=== PATIENT | female | born 1980 | race Caucasian/White ===

== ENCOUNTER 2024-01-04 12:46 | Emergency (ER) | payer BC, SELFPAY ==
[2024-01-04 12:53] VITALS: BP 148/80; PULSE 102; RESP 16; TEMP 36.6; O2SAT 98
[2024-01-04 13:06] VITALS: BP 148/80; PULSE 102; RESP 16; TEMP 36.6; O2SAT 98
--- NOTE | 2024-01-04 13:15 | ED.WOUNDLAC ---
HPI - Wound/Laceration General Chief Complaint: Wound/Laceration Stated Complaint: Laceration to Finger Time Seen by Provider: 01/04/24 13:03 Source: patient and RN notes reviewed Mode of arrival: ambulatory Limitations: no limitations History of Present Illness HPI narrative: Patient presents today with a laceration to the tip for left 3rd finger. She cut in the cargo trimmer yesterday and was subsequently seen in the ER at [facility] where glue was placed. 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 They also did not give her a tetanus vaccine, and she is not up-to-date. She called her PCP's office and was told to come to urgent care to have it updated. Related Data Home Medications Medication Instructions Recorded Confirmed fenofibrate 54 mg tablet mg 01/04/24 lisinopril 20 mg tablet mg 01/04/24 venlafaxine 75 mg capsule,extended mg PO 01/04/24 release 24 hr Allergies Allergy/AdvReac Type Severity Reaction Status Date / Time Sulfa (Sulfonamide Allergy Unknown Nausea and Verified 01/04/24 13:06 Antibiotics) Vomiting Review of Systems Review of Systems: CONSTITUTIONAL: Denies body aches, fever, chills, or sweats. EYES: Denies visual changes, redness, or discharge. ENT: Denies rhinorrhea, congestion, sore throat, or otalgia. CARDIOVASCULAR: Denies chest pain, palpitations, or edema. RESPIRATORY: Denies cough or dyspnea. GASTROINTESTINAL: Denies abdominal pain, nausea, vomiting, or diarrhea. GENITOURINARY: Denies dysuria or hematuria. SKIN: Denies rash, itching. + oozing laceration MUSCULOSKELETAL: Denies back pain, joint pain, or myalgia. NEUROLOGIC: Denies headache, numbness, tingling, or weakness. PSYCH: Denies depression or anxiety. PMFSH Comments At time of signature, I have reviewed and agree with nursing past medical, surgical, social and family history unless otherwise noted. Please see nursing chart for further information. There is no relevant family history pertinent to the presenting complaint Exam Narrative: GENERAL: Well-appearing, well-nourished, and in no acute distress. HEAD: Normocephalic, atraumatic. EYES: EOMI. No redness or drainage. Conjunctivae normal. ENT: Mucous membranes pink and moist. NECK: Normal AROM. CHEST: No respiratory distress. EXTREMITIES: Left 3rd finger: Mild lacerations to the distal finger pad with intact glue. Tiny amount of glue on tissue. Distal sensation intact. Capillary refill normal. Full range of motion finger. Large Band-Aid applied. SKIN: Warm, dry, no rash. Capillary refill normal. Normal skin turgor. NEURO: No focal deficits. Alert and oriented x3. Gait steady. PSYCH: Normal affect. No signs of depression or anxiety. Course Course Level of Care: Express Care Visit Vital Signs Vital signs: Vital Signs Temperature 97.9 F 01/04/24 12:53 Pulse Rate 102 H 01/04/24 12:53 Respiratory Rate 16 01/04/24 12:53 Blood Pressure 148/80 H 01/04/24 12:53 Pulse Oximetry 98 01/04/24 12:53 Oxygen Delivery Room Air 01/04/24 12:53 Temperature 97.9 F 01/04/24 13:06 Pulse Rate 102 H 01/04/24 13:06 Respiratory Rate 16 01/04/24 13:06 Blood Pressure 148/80 H 01/04/24 13:06 Pulse Oximetry 98 01/04/24 13:06 Oxygen Delivery Room Air 01/04/24 13:06 Reviewed MDM - Wound/Laceration MDM Narrative Medical decision making narrative: Band-aid applied. Wound care discussed.. Tetanus shot updated. Anticipatory guidance given. Differential Diagnosis Differential diagnosis: Likely laceration and avulsion of skin Critical Care Time Critical Care Time Critical Care Time: No Discharge Plan Discharge Clinical Impression: Need for tetanus, diphtheria, and acellular pertussis (Tdap) vaccine Finger laceration Qualifiers: Encounter type: subsequent encounter Finger: midd
[2024-01-04] MEDS: TETANUS,DIPHTHERIA,AC PERTUSSIS ADULT (0.5 ML) BOOSTRIX IM (13:22)
== END 2024-01-04 13:32 | disposition home or self-care (01) ==
PROVIDERS: Emergency Provider Nurse Practitioner; PCP Nurse Practitioner Family
DX: S61.213A Laceration without foreign body of left middle finger without damage to nail, initial encounter (principal); W29.3XXA Contact with powered garden and outdoor hand tools and machinery, initial encounter; Z23 Encounter for immunization; I10 Essential (primary) hypertension
CPT/HCPCS: 90471; 90715; 99202; G0463

== ENCOUNTER 2025-02-14 11:22 | Emergency (ER) | payer BC, SELFPAY ==
--- OUTSIDE RECORDS SUMMARY | 2025-02-14 11:24 | XMS_ITS | Clinical Summary ---
Author Organization [facility] Address [address] [address] Phone Care Team Providers Care Behavior Support Specialist Name Role Phone Juliet Wang APRN, CNP Primary Care Provider [phone] Allergies Active Allergy Reactions Criticality Noted Date Comments Sulfa Antibiotics Other (see Comments) 01/03/20 24 Medications traMADol (ULTRAM) 50 MG TabletIndicatio ns:Cervical radiculopathy,D DD (degenerative disc disease), cervical Take 1 Tablet by mouth every 6 hours as needed for Moderate or more severe pain. 12 Tablet 07/16/2024 Active Encounters Date Type Department Care Team Description 11/24/2024 8:17 AM CDT - 11/24/2024 11:59 PM CDT Hospital Encounter [facility] Mamm[facility] [address] [place] [address] Juliet Wang APRN, CNP Discharge Disposition: Discharged to home or Selfcare 11/23/2024 Travel from Last 3 Months Social History Tobacco Use Types Packs/Day Years Used Date Smoking Tobacco: Never Assessed Comments No Sex and Gender Information Value Date Recorded Sex Assigned at Not on file Legal Sex Female 11:25 PM CDT Gender Identity Not on file Sexual Orientation Not on file Last Filed Vital Signs Vital Sign Reading Time Taken Comments Blood Pressure 146/82 07/16/2024 6:15 PM CDT Pulse 81 07/16/2024 6:15 PM CDT Temperature 36.3 C (97.4 F) 07/16/2024 4:15 PM CDT Respiratory Rate 19 07/16/2024 6:15 PM CDT Oxygen Saturation 96% 07/16/2024 6:15 PM CDT Inhaled Oxygen Concentration - - Weight 77.1 kg (170 lb) 07/16/2024 4:15 PM CDT Height 152.4 cm (5') 07/16/2024 4:15 PM CDT Body Mass Index 33.2 07/16/2024 4:15 PM CDT Plan of Treatment Health Maintenance Due Date Last Done Comments Hepatitis C Virus (HCV) Screening 1981 Hepatitis B Immunization (1 of 3 - 19+ 3-dose series) 2000 Pap Smear 2002 Human Papillomavirus (HPV) Immunization (1 - 3-dose SCDM series) 2008 Cervical Cancer Screening (CCS) 12/13/2011 HPV/Cotest 12/13/2011 Influenza Immunization (#1) 2024 SARS-COV-2 Immunization ( season) 2024 Mammogram 10/06/2025 10/06/2024 Respiratory Syncytial Virus (RSV) Immunization (Adult) (1 - 1-dose 75+ series) 2056 DTaP/Tdap/Td Immunization Discontinued 01/04/2024 TdaP Immunization Completed 01/04/2024 Discussion re Starting/Frequency of Mammograms Completed 11/24/2024, 10/06/2024 Meningococcal Immunization (ACWY) Aged Out No longer eligible based on patient's age to complete this topic Pneumococcal Immunization Combined Aged Out No longer eligible based on patient's age to complete this topic Rotavirus Immunization Aged Out No lo nger eligible based on patient's age to complete this topic Procedures Procedure Name Priority Date/Time Associated Diagnosis Comments PACO DIAG RIGHT UNILATERAL DIGITAL W CAD W LISY Routine 11/24/2024 8:45 AM CDT Other specified disorders of breast PACO SCREENING BILATERAL DIGITAL W CAD W LISY Routine 10/06/2024 3:57 PM CDT Visit for screening mammogram from Last 3 Months or Most Recently Relevant to Health Maintenance Results * PACO DIAG RIGHT UNILATERAL DIGITAL W CAD W LISY (11/24/2024 8:45 AM CDT) Anatomical Region Laterality Modality breast Right Mammography 11/24/2024 8:25 AM CDT Narrative 11/24/2024 3:59 PM CDT - PACO DIAG RIGHT UNILATERAL DIGITAL W CAD W LISY UNILATERAL RIGHT DIGITAL DIAGNOSTIC MAMMOGRAM 3D/2D WITH CAD WITH CRANIOCAUDAL ADDITIONAL VIEWS ROLLED LATERAL ROLLED MEDIAL SPOT COMPRESSION: 11/24/2024 The study was acquired using digital technology and interpreted from soft copy. Current study was also evaluated with ICAD version 7.2. 2D digital mammographic views, as well as 3D digital tomosynthesis were performed in the CC and MLO projections. CLINICAL: Patient returns to evaluate an asymmetry in the right breast. No personal history of cancer. No family history of breast cancer. COMPARISONS: Comparison is made to exam dated: 10/06/2024 [facility]. BREAST TISSUE:There are scattered areas of fibroglandular density. FINDINGS: No persistent asymmetry is seen in the right breast on the additional views. No significant masses, calcifications, or other findings are seen in the breast. IMPRESSION: NEGATIVE There is no mammographic evidence of malignancy. A 1 year screening mammogram is recommended. The results and recommendations were discussed with the patient. Electronically signed by: Orin Lindquist M.D. ll/:11/24/2024 08:56:32 Senior Android Developer(s): RT Rah(R)(M), [facility] letter sent: Normal Exam Reading location: [place] Mammogram BI-RADS: Category 1: Negative Procedure Note Orin Lindquist MD - 11/24/2024 - PACO DIAG RIGHT UNILATERAL DIGITAL W CAD W LISY UNILATERAL RIGHT DIGITAL DIAGNOSTIC MAMMOGRAM 3D/2D WITH CAD WITH CRANIOCAUDAL ADDITIONAL VIEWS ROLLED LATERAL ROLLED MEDIAL SPOT COMPRESSION: 11/24/2024 The study was acquired using digital technology and interpreted from soft copy. Current study was also evaluated with ICAD version 7.2. 2D digital mammographic views, as well as 3D digital tomosynthesis were performed in the CC and MLO projections. CLINICAL: Patient returns to evaluate an asymmetry in the right breast. No personal history of cancer. No family history of breast cancer. COMPARISONS: [facility] is [facility] BREAST TISSUE:There are scattered areas of fibroglandular density. FINDINGS: No persistent asymmetry is seen in the right breast on the additional views. No significant masses, calcifications, or other findings are seen in the breast. IMPRESSION: NEGATIVE There is no mammographic evidence of malignancy. A 1 year screening mammogram is recommended. The results and recommendations were discussed with the patient. Electronically signed by: Orin Lindquist M.D. ll/:11/24/2024 08:56:32 Senior Android Developer(s): RT Rah(R)(M), [facility] letter sent: Normal Exam Reading location: [place] Mammogram BI-RADS: Category 1: Negative us Juliet Wang APRN, USER EXPERIENCE TEAM LEAD IMG MAMMO ORDERABLES Donita l Result * PACO SCREENING BILATERAL DIGITAL W CAD W LISY (10/06/2024 3:57 PM CDT) Anatomical Region Laterality Modality breast Bilateral Mammography 10/06/2024 3:23 PM CDT Narrative 10/07/2024 10:48 AM CDT - PACO SCREENING BILATERAL DIGITAL W CAD W LISY BILATERAL DIGITAL SCREENING MAMMOGRAM 3D/2D WITH CAD WITH MEDIOLATERAL OBLIQUE CRANIOCAUDAL: 10/06/2024 The study was acquired using digital technology and interpreted from soft copy. Current study was also evaluated with ICAD version 7.2. 2D digital mammographic views, as well as 3D digital tomosynthesis were performed in the CC and MLO projections. CLINICAL: Baseline screening. Patient has no complaints. No personal history of cancer. No family history of breast cancer. COMPARISONS: No prior exams were available for comparison. BREAST TISSUE:There are scattered areas of fibroglandular density. FINDINGS: There is an asymmetry in the right breast anterior depth central to the nipple seen on the craniocaudal view only. No other significant masses, calcifications, or other findings are seen in either breast. IMPRESSION: INCOMPLETE: NEED ADDITIONAL IMAGING EVALUATION The asymmetry in the right breast is indeterminate. An immediate follow-up is recommended. A letter will be sent to the patient with these results. Electronically signed by: Orin conway/penrad:10/06/2024 22:25:45 Senior Android Developer(s): RT Roberto(R)(M), [facility] letter sent: Additional Imaging Reading location: [place] Mammogram BI-RADS: Category 0: Incomplete: Need Additional Imaging Evaluation Procedure Note Orin Lindquist MD - 10/07/2024 - PACO SCREENING BILATERAL DIGITAL W CAD W LISY BILATERAL DIGITAL SCREENING MAMMOGRAM 3D/2D WITH CAD WITH MEDIOLATERAL OBLIQUE CRANIOCAUDAL: 10/06/2024 The study was acquired using digital technology and interpreted from soft copy. Current study was also evaluated with ICAD version 7.2. 2D digital mammographic views, as well as 3D digital tomosynthesis were performed in the CC and MLO projections. CLINICAL: Baseline screening. Patient has no complaints. No personal history of cancer. No family history of breast cancer. COMPARISONS: No prior exams were available for comparison. BREAST TISSUE:There are scattered areas of fibroglandular density. FINDINGS: There is an asymmetry in the right breast anterior depth central to the nipple seen on the craniocaudal view only. No other significant masses, calcifications, or other findings are seen in either breast. IMPRESSION: INCOMPLETE: NEED ADDITIONAL IMAGING EVALUATION The asymmetry in the right breast is indeterminate. An immediate follow-up is recommended. A letter will be sent to the patient with these results. Electronically signed by: Orin conway/penrad:10/06/2024 22:25:45 Senior Android Developer(s): RT Roberto(R)(M), [facility] sent: Additional Imaging Reading location: [place] Mammogram BI-RADS: Category 0: Incomplete: Need Additional Imaging Evaluation us Juliet Wang SOUND EQUIPMENT MECHANIC, USER EXPERIENCE TEAM LEAD IMG MAMMO ORDERABLES Donita l Result from Last 3 Months or Most Recently Relevant to Health Maintenance Insurance MEDICAID [place] Care Teams Behavior Support Specialist Relationship Specialty Start Date End Date Felipe, GER Chung, CYRIL PCP - General Family Medicine 01/03/24
[2025-02-14 11:25] VITALS: BP 150/74; PULSE 95; RESP 16; TEMP 36.3; O2SAT 99
--- NOTE | 2025-02-14 11:25 | ED_ITS ---
HPI - URI/Sore Throat General Chief Complaint: Upper Respiratory Infection Stated Complaint: Cough/Runny Nose/Chest Congestioin Time Seen by Provider: 02/14/25 11:24 Source: patient Mode of arrival: ambulatory Limitations: no limitations History of Present Illness HPI Narrative: Marixa is a 44 year old female patient presenting to the clinic today with c/o cough, runny nose, wheezing,and chest congestion x1 week. She reports she is coughing up some brown phlegm. She is a current smoker. She denies any fevers, chills, body aches. Has not taken any medications for her symptoms. States she gets bronchitis every year. No history of asthma or COPD. Denies any chest pain or shortness of breath. Related Data Home Medications ?Medication ?Instructions ?Recorded ?Confirmed ?Last Taken ?Type fenofibrate 54 mg tablet mg 01/04/24 Unknown History lisinopril 20 mg tablet mg 01/04/24 Unknown History venlafaxine 75 mg capsule,extended mg PO 01/04/24 Unk nown History release 24 hr fenofibrate 160 mg tablet mg 02/14/25 Unknown History Allergies Allergy/AdvReac Type Severity Reaction Status Date / Time Sulfa (Sulfonamide Allergy Unknown Nausea and Verified 02/14/25 11:35 Antibiotics) Vomiting Review of Systems Review of Systems: Pertinent positives per HPI. Patient denies any fever, chills, rash, headache, visual changes, dizziness, shortness of breath, chest pain, palpitations, nausea, vomiting, diarrhea, constipation, abdominal pain, or any urinary issues. PMFSH Comments At the time of my signature, I reviewed and agree with the nursing past medical, surgical, social, and family history. There is no relevant family history pertinent to the patient complaint. Exam Narrative: General: Well-developed, well nourished, in no apparent distress Head: Normocephalic, atraumatic Eyes: Pupils equally round and reactive to light bilaterally, EOM intact, sclera and conjunctive clear, no discharge, lids normal Ears: TMs intact and clear, ear canals clear, no drainage, grossly hearing normal. Nose: Nares patent, clear nasal discharge, mild inflammation, no sinus tenderness. Mouth: Oral pharynx without lesions or masses, good dentition, MMM. PND Neck: Supple, trachea midline, no enlargement of anterior or posterior cervical nodes, no thyroid masses or goiter palpable. Cardio: Regular rate and rhythm, s1 and s2 normal, no murmur appreciated. Resp: Clear to auscultation bilaterally, no rhonchi, rales, wheezing or rubs Course Course Emergency Course: Portions of this record may have been created with voice recognition software. Level of Care: Express Care Visit Vital Signs Vital signs: Vital Signs Temperature 36.3 C L 02/14/25 11: Pulse Rate 95 02/14/25 11: Respiratory Rate 16 02/14/25 11:25 Blood Pressure 150/74 H 02/14/25 11:25 Pulse Oximetry 99 02/14/25 11:25 Oxygen Delivery Room Air 02/14/25 11: Temperature 36.3 C L 02/14/25 11: Pulse Rate 95 02/14/25 11: Respiratory Rate 16 02/14/25 11: Blood Pressure 150/74 H 02/14/25 11:25 Pulse Oximetry 99 02/14/25 11:25 Oxygen Delivery Room Air 02/14/25 11:25 Vital signs reviewed MDM - URI/Sore Throat MDM Narrative Medical decision making narrative: At the time of visit patient is resting comfortably on the exam table. Patient appears to be nontoxic. C/o cough, runny nose, wheezing,and chest congestion x1 week. She reports she is coughing up some brown phlegm. She is a current smoker. She denies any fevers, chills, body aches. Has not taken any medications for her symptoms. States she gets bronchitis every year. No history of asthma or COPD. On exam patient has bilateral TMs intact and clear, clear nasal drainage, oral pharynx postnasal drip, lung sounds are clear, heart rates regular rate and rhythm. No sign of bacterial infection. Plan: I suspect patient likely has viral bronchitis/ URI. Prescription for prednisone and albuterol inhaler was sent to the pharmacy. Supportive measures were discussed with the patient and they voiced understanding discharge instructions and agrees to treatment plan. Return precautions reviewed Differential Diagnosis Differential diagnosis: Likely upper respiratory infection, otitis media, si nusitis, viral infection, bronchitis, influenza, pharyngitis and other (COVID) Discharge Plan Discharge Clinical Impression: Acute bronchitis, viral Patient Disposition: Home Condition: Stable Instructions: Antibiotic Form, Acute Bronchitis (ED) Additional Instructions: Take prescription medications only as prescribed- prednisone and albuterol inhaler Increase fluids and stay well hydrated May take Tylenol or motrin as directed on bottle for pain/fever May use Flonase 1 spray in each nare daily May take OTC antihistamines such as Zyrtec or Claritin daily as directed on bottle May apply Vicks vapor rub to chest to open sinuses Sinus rinses for congestion Cepacol spray, cough drops, throat lozenges, warm tea with honey/lemon, gargle salt water to soothe throat BRAT diet for diarrhea Clear liquids x 24 hours then advance as tolerated for nausea/vomiting Go to the ED if you develop a worsening in your condition- high fever not controlled by Tylenol or Motrin, dehydration, weakness, lethargy, shortness of breath, or chest pain. Follow up with your PCP in 3-5 days if symptoms persist. Patient Language: Montenegrin Prescriptions: New prednisone 20 mg tablet 40 mg PO DAILY 5 Days Qty: 10 0RF albuterol sulfate 90 mcg/actuation HFA aerosol inhaler 2 puff inhalation Q4-6H PRN (Reason: shortness of breath or wheezing) 30 Days Qty: 8.5 0RF No Action fenofibrate 160 mg tablet venlafaxine 75 mg capsule,extended release 24hr PO lisinopril 20 mg tablet fenofibrate 54 mg tablet Follow-up/Referrals: Felipe,Juliet Law APN [Primary Care Provider, Unknown] Stand Alone Forms: Work/School Release IP Time of Disposition: 11:42 Quality NIHSS Nursing Documentation ED NIHSS nursing documentation: reviewed/agree
--- OUTSIDE RECORDS SUMMARY | 2025-02-14 11:25 | XMS_ITS | Data Portability ---
Author Organization [facility] Address [address] [place] [address] Care Team Providers Care Caterer'S Aide Name Role Phone PEREZ, JULIET Primary Care Provider Unavailabl e Assessment No assessment recorded. Plan of Treatment Reminders Order Date Submit Date Provider Last Modified By Organization Details Last Modified Time Details Appointments ANY 15 2024 10:15A Baylee Moran MD Not available Not available Not available Lab CMP, serum or plasma 2024 025 [facility], [address] [place] [address], [place], [address], 11/11/2024 03:36:14 lipid panel, serum 2024 025 [facility], [address] [place] [address], [place], [address], 11/11/2024 03:36:13 TSH, ultra-s ensitiv e, serum 2024 025 [facility], [address] [place] [address], [place], [address], 11/11/2024 03:36:14 HbA1c (hemogl obin A1c), blood 2024 025 [facility], [address] [facility] [address], [place], [address], 09/10/2024 04:09:09 vitamin D, 25-hydr oxy, total, serum 2024 025 [facility], [address] [facility], [facility] 2, [place], [address], 09/10/2024 04:09:11 lipid panel, serum 2024 025 [facility], [address] [facility], [facility] 2, [place], [address], 09/11/2024 08:25:16 CMP, serum or plasma 2024 025 [facility], [address] [facility], [facility] 2, [place], [address], 09/11/2024 08:25:17 Referral physica l therapi st referra l 2024 025 [facility], [address] [place] [address], [facility] [address], [place], [address], 08/12/2024 16:07:23 cardiol ogist referra l 2024 025 chris Moran MD, [address], [facility] [address], [place], [address], 07/25/2024 10:10:56 Procedures None recorde d. Surgeries None recorde d. Imaging exercis e [email or web address], [address] [facility] [place], [address], 12/01/2024 17:24:24 US, echocar diogram , transth oracic, complet e, w/ color flow 2024 025 [facility] ([facility]) Scheduling, [address] [facility] [place], [address], 08/20/2024 10:15:55 XR, chest, 2 view 2024 025 [facility] ([facility]) Scheduling, [address] [facility] [place], [address], 09/02/2024 12:17:48 Medication Orders fenofib rate 160 mg tablet 2024 025 [facility] #[id number], [address] [facility], [place], [place], [id number], 09/16/2024 10:25:31 loratad ine 10 mg tablet 2024 025 [facility] #[id number], [address] [facility], [place], [place], [id number], 08/12/2024 09:08:11 venlafa xine ER 75 mg capsule ,extend ed release 24 hr 2024 025 [facility] #[id number], [address] [facility], [place], [place], [id number], 08/12/2024 09:05:44 Lipitor 20 mg tablet 2024 025 [facility] #50961, [address] [facility], [place], [place], [id number], 09/16/2024 10:22:55 tramado l 50 mg tablet 2024 025 [facility] #12280, [address] [facility], [place], [place], [id number], 07/24/2024 15:37:54 ibuprof en 800 mg tablet 2024 025 [facility] #72661, [address] [facility], [place], [place], [id number], 05/13/2024 10:08:58 lisinop ril 20 mg tablet 2024 025 [facility] #60622, [address] [facility], [place], [place], [id number], 05/13/2024 10:04:10 venlafa xine ER 75 mg capsule ,extend ed release 24 hr 2024 025 [facility] #62655, [address], [place], [place], [id number], 05/13/2024 10:04:11 buspiro ne 5 mg tablet 2024 025 [facility] #02670, [address], [place], [place], [id number], 08/05/2024 10:01:49 Patient TargetsNo targets recorded. Patient Instructions Encounter Date Encounter Id Patient Instructions Last Modified By Organization Details Last Modified Time 05/13/2024 [id number] When You Want to Lose Weight: Care Instructions Not available 05/13/2024 10:04:04 Quitting Tobacco : Care Instructions Not available 05/13/2024 10:04:04 learning about high blood pressure Not available 05/13/2024 10:04:04 high cholesterol : care instructions Not available 05/13/2024 10:10:52 Follow a low sandra t diet, drink at least 8-10 8oz glasses of water a day, exercise most days of the week. Not available 05/13/2024 10:15:21 f/u 3 months DWP barriers to care: none Not available 05/13/2024 10:09:40 07/24/2024 [id number] neck pain: care instructions Not available 07/24/2024 15:35:56 When You Want to Lose Weight: Care Instructions Not available 07/24/2024 15:35:56 learning about high blood pressure Not available 07/24/2024 15:35:56 - Avoid heavy lifting and over-exertion. - Avoid bed-rest do some gentle stretching and continue with normal activities. - Use ice to relieve pain, 15 minutes every 2 4 hours. - Use heat to relax muscles, 15 minutes every 2 4 hours. - Sleep on a firm surface and avoid lying on the sofa. Not available 07/24/2024 15:39:17 keep f/u as planned Not available 07/24/2024 15:39:12 08/05/2024 [id number] Quitting Tobacco : Care Instructions Not available 08/05/2024 10:28:15 A healthy lifestyle: care instructions [email or web address] Not available 08/05/2024 10:28:15 08/12/2024 [id number] neck pain: care instructions Not available 08/12/2024 09:05:32 Quitting Tobacco : Care Instructions Not available 08/12/2024 09:05:32 high cholesterol : care instructions Not available 08/12/2024 09:05:32 upper respirator y infection (cold): care instructions Not available 08/12/2024 09:05:32 learning about high blood sugar Not available 08/12/2024 09:05:32 learning about high blood pressure Not available 08/12/2024 09:05:32 Increase intake of fresh fruits, and vegetables. Avoid packaged foods and fast foods. Follow a low salt diet, drink at least 8-10 8oz glasses of water a day, exercise most days of the week. Take all medications as prescribed. Keep appointments with PCP and all specialists. [email or web address] Not available 08/12/2024 08:50:07 Labs done with Cardiology labs, follow-up upon completion of physical therapy Not available 08/12/2024 08:50:00 09/16/2024 [id number] A healthy lifestyle: care instructions [email or web address] Not available 09/16/2024 10:25:25 Reason for Referral Ecd Referral for El ectrocardiogram abnormal Referring Physician: [facility], Encounter Date: 07/24/2024 Physical Therapist Referral for Neck pain Referring Physician: [facility], Encounter Date: 07/24/2024 Results Created Date Observation Date Name Description Value Unit Range Abnormal Flag Note LastModifiedBy Organization Detail LastModifiedTime 07/17/19 25 07/16/2024 CBC W Auto Diffe alverto al panel - Blood leukocytes [#/volume] in blood by automated count 9.21 text: 4.00 - 12.00 10(3)/ mcL WBC 9.21 4.00 - 12.00 10(3) /mcL 07/16 5:50 PM CD[facility] Not Available Not Available 07/24/2024 06:24:11 07/17/19 25 07/16/2024 CBC W Auto Diffe renti al panel - Blood erythrocytes [#/volume] in blood by automated count 4.07 text: 3.80 - 5.30 10(6)/ mcL RBC 4.07 3.80 - 5.30 10(6) /mcL 07/16 5:50 PM CDT [facility] Not Available Not Available 07/24/2024 06:24:11 07/17/19 25 07/16/2024 CBC W Auto Diffe renti al panel - Blood hemoglobin [mass/volume ] in blood 12.6 g/dL low: 12g/dL high: 15.8g/ dL HEMOG LOBIN (HGB) 12.6 12.0 - 15.8 g/dL 07/16 5:50 PM CDT [facility] Not Available Not Available 07/24/2024 06:24:11 07/17/19 25 07/16/2024 CBC W Auto Diffe renti al panel - Blood hematocrit [volume fraction] of blood by automated count 37.2 % low: 36%hig h: 47% HEMAT OCRIT (HCT) 37.2 36.0 - 47.0 % 07/16 5:50 PM CDT [facility] Not Available Not Available 07/24/2024 06:24:11 07/17/19 25 07/16/2024 CBC W Auto Diffe renti al panel - Blood MCV [entitic mean volume] in red blood cells by automated count 91.4 fL low: 82fLhi gh: 96fL MCV 91.4 82.0 - 96.0 fL 07/16 5:50 PM CDT [facility] Not Available Not Available 07/24/2024 06:24:11 07/17/19 25 07/16/2024 CBC W Auto Diffe renti al panel - Blood MCH [entitic mass] by automated count 31 pg low: 26pghi gh: 34pg MCH 31.0 26.0 - 34.0 pg 07/16 5:50 PM CDT [facility] Not Available Not Available 07/24/2024 06:24:11 07/17/19 25 07/16/2024 CBC W Auto Diffe renti al panel - Blood MCHC [entitic mass/volume] in red blood cells by automated count 33.9 g/dL low: 31g/dL high: 36g/dL MCHC 33.9 31.0 - 36.0 g/dL 07/16 5:50 PM CDT [facility] Not [facility] Not Available 07/24/2024 06:24:11 07/17/19 25 07/16/2024 CBC W Auto Diffe renti al panel - Blood platelets [#/volume] in blood 376 text: 140 - 440 10(3)/ mcL PLATE LET COUNT 376 140 - 440 10(3) /mcL 07/16 5:50 PM CDT [facility] [place] [facility] [facility] Not Available Not Available 07/24/2024 06:24:11 07/17/19 25 07/16/2024 CBC W Auto Diffe renti al panel - Blood erythrocyte [distwidth] in red blood cells by automated count 12.8 % low: 11.8%h igh: 15.5% RDW 12.8 11.8 - 15.5 % 07/16 5:50 PM CDT [facility] Not Available Not Available 07/24/2024 06:24:11 07/17/19 25 07/16/2024 CBC W Auto Diffe renti al panel - Blood platelet [entitic mean volume] in blood by automated count 9.9 fL low: 9.7fLh igh: 12.4fL MPV 9.9 9.7 - 12.4 fL 07/16 5:50 PM CDT [facility] [place] [facility] Not Available Not Available 07/24/2024 06:24:11 07/17/19 25 07/16/2024 CBC W Auto Diffe renti al panel - Blood neutrophils/ leukocytes in blood by automated count 66.1 % low: 47%hig h: 73% NEUTR OPHIL S 66.1 47.0 - 73.0 % 07/16 5:50 PM CDT [facility] Not Available Not Available 07/24/2024 06:24:11 07/17/19 25 07/16/2024 CBC W Auto Diffe renti al panel - Blood lymphocytes/ leukocytes in blood by automated count 23.7 % low: 18%hig h: 42% LYMPH OCYTE S 23.7 18.0 - 42.0 % 07/16 5:50 PM CDT [facility] Not Available Not Available 07/24/2024 06:24:11 07/17/19 25 07/16/2024 CBC W Auto Diffe renti al panel - Blood monocytes/le ukocytes in blood by automated count 4.1 % low: 4%high : 12% MONOC YTES 4.1 4.0 - 12.0 % 07/16 5:50 PM CDT [facility] Not Available Not Available 07/24/2024 06:24:11 07/17/19 25 07/16/2024 CBC W Auto Diffe renti al panel - Blood eosinophils/ leukocytes in blood by automated count 5.2 % low: 0%high : 5% high EOSIN OPHIL S 5.2 (H) 0.0 - 5.0 % 07/16 5:50 PM CDT [facility] Not Available Not Available 07/24/2024 06:24:11 07/17/19 25 07/16/2024 CBC W Auto Diffe renti al panel - Blood basophils/le ukocytes in blood by automated count 0.9 % low: 0%high : 1% BASOP HILS 0.9 0.0 - 1.0 % 07/16 5:50 PM CDT [facility] Not Available Not Available 07/24/2024 06:24:11 07/17/19 25 07/16/2024 CBC W Auto Diffe renti al panel - Blood neutrophils [#/volume] in blood by automated count 6.09 text: 1.60 - 7.70 10(3)/ mcL ABSOL NEWHALEN NEUTR OPHIL S 6.09 1.60 - 7.70 10(3) /mcL 07/16 5:50 PM CDT [facility] Not Available Not Available 07/24/2024 06:24:11 07/17/19 25 07/16/2024 CBC W Auto Diffe renti al panel - Blood lymphocytes [#/volume] in blood by automated count 2.18 text: 1.30 - 3.20 10(3)/ mcL ABSOL NEWHALEN LYMPH OCYTE S 2.18 1.30 - 3.20 10(3) /mcL 07/16 5:50 PM CDT [facility] Not Available Not Available 07/24/2024 06:24:11 07/17/19 25 07/16/2024 CBC W Auto Diffe renti al panel - Blood monocytes [#/volume] in blood by automated count 0.38 text: 0.20 - 1.00 10(3)/ mcL ABSOL NEWHALEN MONOC YTES 0.38 0.20 - 1.00 10(3) /mcL 07/16 5:50 PM CDT [facility] Not Available Not Available 07/24/2024 06:24:11 07/17/19 25 07/16/2024 CBC W Auto Diffe renti al panel - Blood eosinophils [#/volume] in blood by automated count 0.48 text: 0.00 - 0.40 10(3)/ mcL high ABSOL NEWHALEN EOSIN OPHIL 0.48 (H) 0.00 - 0.40 10(3) /mcL 07/16 5:50 PM CDT [facility] Not Available Not Available 07/24/2024 06:24:11 07/17/19 25 07/16/2024 CBC W Auto Diffe renti al panel - Blood basophils [#/volume] in blood by automated count 0.08 text: 0.00 - 0.10 10(3)/ mcL ABSOL NEWHALEN BASOP HILS 0.08 0.00 - 0.10 10(3) /mcL 07/16 5:50 PM CDT [facility] Not Available Not Available 07/24/2024 06:24:11 07/17/19 25 07/16/2024 CBC W Auto Diffe renti al panel - Blood nucleated erythrocytes /leukocytes [ratio] in blood 0 NRBC PER 100 WBC 0 07/16 5:50 PM CDT [facility] Not Available Not Available 07/24/2024 06:24:11 07/17/19 25 07/16/2024 CBC W Auto Diffe renti al panel - Blood interpretati on and review of laboratory results ABNORM AL Not Available Not Available 06:24:11 07/17/19 25 07/16/2024 Magne sium [Mass /volu me] in Serum or Plasm a magnesium [mass/volume ] in serum or plasma 1.9 mg/dL low: 1.6mg/ dLhigh : 2.6mg/ dL MAGNE SIUM 1.9 1.6 - 2.6 mg/dL 07/16 5:43 PM CDT [facility] Not Available Not Available 07/24/2024 06:24:11 07/17/19 25 07/16/2024 Magne sium [Mass /volu me] in Serum or Plasm a interpretati on and review of laboratory results NORMAL Not Available Not Available 07/08 06:24:11 07/17/19 25 07/16/2024 Compr ehens charito metab olic 2000 panel - Serum or Plasm a sodium [moles/volum e] in serum or plasma 136 mmol/ L low: 136mmo l/Lhig h: 145mmo l/L SODIU M 136 136 - 145 mmol/ L 07/16 5:43 PM CDT [facility] Not Available Not Available 07/24/2024 06:24:11 04/09/07/16/2024 Compr ehens charito metab olic 1999 panel - Serum or Plasm a potassium [moles/volum e] in serum or plasma 4 mmol/ L low: 3.5mmo l/Lhig h: 5.1mmo l/L POTAS SIUM 4.0 3.5 - 5.1 mmol/ L 07/16 5:43 PM CDT [facility] Not Available Not Available 07/24/2024 06:24:11 07/17/19 25 07/16/2024 Compr ehens charito metab olic 1999 panel - Serum or Plasm a chloride [moles/volum e] in serum or plasma 107 mmol/ L low: 98mmol /Lhigh : 107mmo l/L CHLOR ANURAG 107 98 - 107 mmol/ L 07/16 5:43 PM CDT [facility] Not Available Not Available 07/24/2024 06:24:11 07/17/19 25 07/16/2024 Compr ehens charito metab olic 1999 panel - Serum or Plasm a carbon dioxide, total [moles/volum e] in serum or plasma 24 mmol/ L low: 22mmol /Lhigh : 30mmol /L CO2, VENOU S 24 22 - 30 mmol/ L 07/16 5:43 PM CDT [facility] Not Available Not Available 07/24/2024 06:24:11 07/17/19 25 07/16/2024 Compr ehens charito metab olic 1999 panel - Serum or Plasm a anion gap in serum or plasma by calculation 9 mmol/ L high: 18mmol /L ANION GAP 9.0 <18.0 mmol/ L 07/16 5:43 PM CDT [facility] Not Available Not Available 07/24/2024 06:24:11 07/17/19 25 07/16/2024 Compr ehens charito metab olic 2000 panel - Serum or Plasm a glucose [mass/volume ] in serum or plasma 103 mg/dL low: 70mg/d Lhigh: 99mg/d L high GLUCO SE 103 (H) 70 - 99 mg/dL 07/16 5:43 PM CDT [facility] Not Available Not Available 07/24/2024 06:24:11 07/17/19 25 07/16/2024 Compr [employer] charito metab olic 1999 panel - Serum or Plasm a urea nitrogen [mass/volume ] in serum or plasma 17 mg/dL low: 5mg/dL high: 18mg/d L BUN 17 5 - 18 mg/dL 07/16 5:43 PM CDT [facility] Not Available Not Available 07/24/2024 06:24:11 07/17/19 25 07/16/2024 Compr ehens charito metab olic 1999 panel - Serum or Plasm a creatinine [mass/volume ] in serum or plasma 0.66 mg/dL low: 0.6mg/ dLhigh : 1mg/dL CREAT ININE , BLOOD 0.66 0.60 - 1.00 mg/dL 07/16 5:43 PM CDT [facility] Not Available Not Available 07/24/2024 06:24:11 07/17/19 25 07/16/2024 Compr [employer] charito metab olic 2000 panel - Serum or Plasm a urea nitrogen/cre atinine [mass ratio] in serum or plasma 26 text: 12 - 20 ratio high BUN/C REATI NINE RATIO 26 (H) 12 - 20 ratio 07/16 5:43 PM CDT [facility] Not Available Not Available 07/24/2024 06:24:11 07/17/19 25 07/16/2024 Compr [employer] charito metab olic 1999 panel - Serum or Plasm a protein [mass/volume ] in serum or plasma 7.6 g/dL low: 6g/dLh igh: 8g/dL TOTAL PROTE IN 7.6 6.0 - 8.0 g/dL 07/16 5:43 PM CDT [facility] Not Available Not Available 07/24/2024 06:24:11 07/17/19 25 07/16/2024 Compr [employer] charito metab olic 2000 panel - Serum or Plasm a albumin [mass/volume ] in serum or plasma 4.2 g/dL low: 3.5g/d Lhigh: 5g/dL ALBUM IN 4.2 3.5 - 5.0 g/dL 07/16 5:43 PM CDT [facility] Not Available Not Available 07/24/2024 06:24:11 07/17/19 25 07/16/2024 Compr [employer] charito metab olic 1999 panel - Serum or Plasm a albumin/glob ulin [mass ratio] in serum or plasma 1.2 low: 1high: 2.2 A/G RATIO 1.2 1.0 - 2.2 07/16 5:43 PM CDT [facility] Not Available Not Available 07/24/2024 06:24:11 07/17/19 25 07/16/2024 Compr [employer] charito metab olic 2000 panel - Serum or Plasm a calcium [mass/volume ] in serum or plasma 9 mg/dL low: 8.7mg/ dLhigh : 10.5mg /dL CALCI UM 9.0 8.7 - 10.5 mg/dL 07/16 5:43 PM CDT [facility] Not Available Not Available 07/24/2024 06:24:11 07/17/19 25 07/16/2024 Compr [employer] charito [employer] olic 1999 panel - Serum or Plasm a bilirubin.to francisco [mass/volume ] in serum or plasma 0.2 mg/dL low: 0.2mg/ dLhigh : 1.2mg/ dL T BILI 0.2 0.2 - 1.2 mg/dL 07/16 5:43 PM CDT [facility] Not Available Not Available 07/24/2024 06:24:11 07/17/19 25 07/16/2024 Compr [employer] charito metab olic 2000 panel - Serum or Plasm a aspartate aminotransfe rase [enzymatic activity/vol ume] in serum or plasma 27 U/L high: 43U/L SGOT (AST) 27 <43 U/L 07/16 5:43 PM CDT [facility] Not Available Not Available 07/24/2024 06:24:11 07/17/19 25 07/16/2024 Compr ehens charito metab olic 2000 panel - Serum or Plasm a alanine aminotransfe rase [enzymatic activity/vol ume] in serum or plasma 23 U/L high: 56U/L SGPT (ALT) 23 <56 U/L 07/16 5:43 PM CDT [facility] Not Available Not Available 07/24/2024 06:24:11 07/17/19 25 07/16/2024 Compr ehens charito metab olic 2000 panel - Serum or Plasm a alkaline phosphatase [enzymatic activity/vol ume] in serum or plasma 85 U/L low: 40U/Lh igh: 150U/L ALKAL INE PHOSP HATAS E 85 40 - 150 U/L 07/16 5:43 PM CDT [facility] Not Available Not Available 07/24/2024 06:24:11 07/17/19 25 07/16/2024 Compr ehens charito metab olic 2000 panel - Serum or Plasm a glomerular filtration rate [volume rate/area] in serum, plasma or blood by creatinine-b ased formula (CKD-epi 2020)/1.73 sq M low: 60 GFR, ESTIM ATED >60 >=60 07/16 5:43 PM CDT [facility] Not Available Not Available 07/24/2024 06:24:11 07/17/19 25 07/16/2024 Compr ehens charito metab olic 2000 panel - Serum or Plasm a glomerular filtration rate [volume rate/area] in serum, plasma or blood by creatinine-b ased formula (MDRD)/1.73 sq M among black population low: 60 GFR, EST. AFRIC AN >60 >=60 07/16 5:43 PM CDT [facility] [employer] [facility] Not Available Not Available 07/24/2024 06:24:11 07/17/19 25 07/16/2024 Compr ehens charito metab olic 2000 panel - Serum or Plasm a glomerular filtration rate [volume rate/area] in serum, plasma or blood by creatinine-b ased formula (MDRD)/1.73 sq M among non black population low: 60 GFR, EST. NONAF RICAN >60 >=60 07/16 5:43 PM CDT [facility] Not Available Not Available 07/24/2024 06:24:11 07/17/1907/16/2024 Compr ehens charito metab olic 2000 panel - Serum or Plasm a interpretati on and review of laboratory results ABNORM AL Not Available Not Available 06:24:11 09/10/19 25 09/09/2024 HEMOG LOBIN A1C hemoglobin A1C 6.2 % 4.8-5. 6 above high normal Predi abete s: 5.7 - 6.4 Diabe quintin: >6.4 Glyce edith contr ol for adult s with diabe quintin: <7.0 Not Available [facility] ([facility]) [address] [facility], [place], [address], 09/10/2024 04:09:09 09/10/19 25 09/10/2024 VITAM IN D, 25-HY DROXY vitamin D, 25-hydroxy 29.2 NG/mL 30.0-1 00.0 below low normal Vitam in D defic iency has been defin ed by the Insti tute of Medic ine and an Endoc rine Socie ty pract ice guide line as a level of serum 25-OH vitam in D less than 20 ng/mL (1,2) . The Endoc rine Socie ty went on to [facility] er defin e vitam in D insuf ficie ncy as a level betwe en 21 and 29 ng/mL (2). 1. IOM (Inst itute of Medic ine). 2009. Dieta ry refer ence christopher es for calci um and D. Kostas lazaro [place]: The Natio [facility] Press . 2. Julissa love MF, Susan bustillos [place], Alberto off-F errar i LEAL, et al. Evalu ation , treat ment, and preve ntion of vitam in D defic iency : an Endoc rine Socie ty clini vandana pract ice guide line. JCEM. 2010; 96(7) :1911 -30. Not Available [facility] ([facility]) [address] [place], [address], 09/10/2024 04:09:11 09/10/19 25 09/11/2024 LIPID PROFI LE cholesterol, total 197 mg/dL 100-19 9 Not Available [facility] ([facility]) [address] [place], [address], 09/11/2024 08:25:15 09/10/19 25 09/11/2024 LIPID PROFI LE triglyceride s 597 mg/dL 0-149 alert high Not Available [facility] ([facility]) [address] [place], [address], 09/11/2024 08:25:15 09/10/19 25 09/11/2024 LIPID PROFI LE HDL cholesterol 30 mg/dL >39 below low normal Not Available [facility] ([facility]) [address] [place], [address], 09/11/2024 08:25:15 09/10/19 25 09/11/2024 LIPID PROFI LE VLDL cholesterol vandana 94 mg/dL 5-40 above high normal Not Available [facility] ([facility]) [address] [place], [address], 09/11/2024 08:25:15 09/10/19 25 09/11/2024 LIPID PROFI LE LDL chol calc ([facility]) 73 mg/dL 0-99 Not Available [facility] ([facility]) [address] [place], [address], 09/11/2024 08:25:15 09/10/19 25 09/11/2024 COMP. METAB OLIC PANEL (14) glucose 114 mg/dL 70-99 above high normal Not Available [facility] ([facility]) [address] [place], [address], 09/11/2024 08:25:17 09/10/19 25 09/11/2024 COMP. METAB OLIC PANEL (14) BUN 10 mg/dL 6-24 Not Available [facility] ([facility]) [address] [place], [address], 09/11/2024 08:25:17 09/10/19 25 09/11/2024 COMP. METAB OLIC PANEL (14) creatinine 0.62 mg/dL 0.57-1 .00 Not Available [facility] ([facility]) [address] [place], [address], 09/11/2024 08:25:17 09/10/19 25 09/11/2024 COMP. METAB OLIC PANEL (14) eGFR 114 mL/mi n/1.7 3 >59 Not Available [facility] ([facility]) [address] [facility] [place], [address], 09/11/2024 08:25:17 09/10/19 25 09/11/2024 COMP. METAB OLIC PANEL (14) BUN/creatini ne ratio 16 9-23 Not Available [facility] ([facility]) [address] [facility] [place], [address], 09/11/2024 08:25:17 09/10/19 25 09/11/2024 COMP. METAB OLIC PANEL (14) sodium 139 mmol/ L 134-14 4 Not Available [facility] ([facility] Services [facility]) [address] [facility] [place], [address], 09/11/2024 08:25:17 09/10/19 25 09/11/2024 COMP. METAB OLIC PANEL (14) potassium 4.7 mmol/ L 3.5-5. 2 Not Available [facility] ([facility]) [address] [facility] [place], [address], 09/11/2024 08:25:17 09/10/19 25 09/11/2024 COMP. METAB OLIC PANEL (14) chloride 104 mmol/ L 96-106 Not Available [facility] ([facility]) [address] [place], [address], 09/11/2024 08:25:17 09/10/19 25 09/11/2024 COMP. METAB OLIC PANEL (14) carbon dioxide, total 19 mmol/ L 20-29 below low normal Not Available [facility] ([facility]) [address] [place], [address], 09/11/2024 08:25:17 09/10/19 25 09/11/2024 COMP. METAB OLIC PANEL (14) calcium 8.6 mg/dL 8.7-10 .2 below low normal Not Available [facility] ([facility]) [address] [place], [address], 09/11/2024 08:25:17 09/10/19 25 09/11/2024 COMP. METAB OLIC PANEL (14) protein, total 6.3 g/dL 6.0-8. 5 Not Available [facility] ([facility]) [address] [place], [address], 09/11/2024 08:25:17 09/10/19 25 09/11/2024 COMP. METAB OLIC PANEL (14) albumin 4.0 g/dL 3.9-4. 9 Not Available [facility] ([facility]) [address] [place], [address], 09/11/2024 08:25:17 09/10/19 25 09/11/2024 COMP. METAB OLIC PANEL (14) globulin, total 2.3 g/dL 1.5-4. 5 Not Available [facility] ([facility]) [address] [place], [address], 09/11/2024 08:25:17 09/10/19 25 09/11/2024 COMP. METAB OLIC PANEL (14) bilirubin, total <0.2 mg/dL 0.0-1. 2 Not Available [facility] ([facility]) [address] [place], [address], 09/11/2024 08:25:17 09/10/19 25 09/11/2024 COMP. METAB OLIC PANEL (14) alkaline phosphatase 121 IU/L 44-121 Not Available [facility] ([facility]) [address] [place], [address], 09/11/2024 08:25:17 09/10/19 25 09/11/2024 COMP. METAB OLIC PANEL (14) AST (SGOT) 24 IU/L 0-40 Not Available [facility] ([facility]) [address] [place], [address], 09/11/2024 08:25:17 09/10/19 25 09/11/2024 COMP. METAB OLIC PANEL (14) ALT (SGPT) 26 IU/L 0-32 Not Available [facility] ([facility]) [address] [place], [address], 09/11/2024 08:25:17 11/11/19 25 11/11/2024 LIPID PANEL cholesterol, total 229 mg/dL 100-19 9 above high normal Not Available [facility] ([facility]) [address] [place], [address], 11/11/2024 03:36:13 11/11/19 25 11/11/2024 LIPID PANEL triglyceride s 251 mg/dL 0-149 above high normal Not Available [facility] ([facility]) [address] [place], [address], 11/11/2024 03:36:13 11/11/19 25 11/11/2024 LIPID PANEL HDL cholesterol 39 mg/dL >39 below low normal Not Available [facility] ([facility]) [address] [place], [address], 11/11/2024 03:36:13 11/11/19 25 11/11/2024 LIPID PANEL VLDL cholesterol vandana 46 mg/dL 5-40 above high normal Not Available [facility] ([facility]) [address] [place], [address], 11/11/2024 03:36:13 11/11/19 25 11/11/2024 LIPID PANEL LDL chol calc ([facility]) 144 mg/dL 0-99 above high normal Not Available [facility] ([facility]) [address] [place], [address], 11/11/2024 03:36:13 11/11/19 25 11/11/2024 COMP. METAB OLIC PANEL (14) glucose 108 mg/dL 70-99 above high normal Not Available [facility] ([facility]) [address] [place], [address], 11/11/2024 03:36:14 11/11/19 25 11/11/2024 COMP. METAB OLIC PANEL (14) BUN 11 mg/dL 6-24 Not Available [facility] ([facility]) [address] [place], [address], 11/11/2024 03:36:14 11/11/19 25 11/11/2024 COMP. METAB OLIC PANEL (14) creatinine 0.69 mg/dL 0.57-1 .00 Not Available [facility] ([facility]) [address] [place], [address], 11/11/2024 03:36:14 11/11/19 25 11/11/2024 COMP. METAB OLIC PANEL (14) eGFR 111 mL/mi n/1.7 3 >59 Not Available [facility] ([facility]) [address] [place], [address], 11/11/2024 03:36:14 11/11/19 25 11/11/2024 COMP. METAB OLIC PANEL (14) BUN/creatini ne ratio 16 9-23 Not Available [facility] ([facility]) [address] [facility] [place], [address], 11/11/2024 03:36:14 11/11/19 25 11/11/2024 COMP. METAB OLIC PANEL (14) sodium 137 mmol/ L 134-14 4 Not Available [facility] ([facility]) [address] [facility] [place], [address], 11/11/2024 03:36:14 11/11/19 25 11/11/2024 COMP. METAB OLIC PANEL (14) potassium 4.5 mmol/ L 3.5-5. 2 Not Available [facility] ([facility]) [address] [facility] [place], [address], 11/11/2024 03:36:14 11/11/19 25 11/11/2024 COMP. METAB OLIC PANEL (14) chloride 103 mmol/ L 96-106 Not Available [facility] ([facility]) [address] [facility] [place], [address], 11/11/2024 03:36:14 11/11/19 25 11/11/2024 COMP. METAB OLIC PANEL (14) carbon dioxide, total 19 mmol/ L 20-29 below low normal Not Available [facility] ([facility]) [address] [facility] [place], [address], 11/11/2024 03:36:14 11/11/19 25 11/11/2024 COMP. METAB OLIC PANEL (14) calcium 9.1 mg/dL 8.7-10 .2 Not Available [facility] ([facility]) [address] [facility] [place], [address], 11/11/2024 03:36:14 11/11/19 25 11/11/2024 COMP. METAB OLIC PANEL (14) protein, total 6.7 g/dL 6.0-8. 5 Not Available [facility] ([facility]) [address] [facility], [place], [address], 11/11/2024 03:36:14 11/11/19 25 11/11/2024 COMP. METAB OLIC PANEL (14) albumin 4.2 g/dL 3.9-4. 9 Not Available [facility] ([facility]) [address], [place], [address], 11/11/2024 03:36:14 11/11/19 25 11/11/2024 COMP. METAB OLIC PANEL (14) globulin, total 2.5 g/dL 1.5-4. 5 Not Available [facility] ([facility]) [address] [facility], [place], [address], 11/11/2024 03:36:14 11/11/19 25 11/11/2024 COMP. METAB OLIC PANEL (14) bilirubin, total 0.2 mg/dL 0.0-1. 2 Not Available [facility] ([facility]) [address] [facility], [place], [address], 11/11/2024 03:36:14 11/11/19 25 11/11/2024 COMP. METAB OLIC PANEL (14) alkaline phosphatase 75 IU/L 44-121 Not Available [facility] ([facility]) [address] [facility], [place], [address], 11/11/2024 03:36:14 11/11/19 25 11/11/2024 COMP. METAB OLIC PANEL (14) AST (SGOT) 29 IU/L 0-40 Not Available [facility] ([facility]) [address] [facility], [place], [address], 11/11/2024 03:36:14 11/11/19 25 11/11/2024 COMP. METAB OLIC PANEL (14) ALT (SGPT) 25 IU/L 0-32 Not Available [facility] ([facility]) [address] [facility], [place], [address], 11/11/2024 03:36:14 11/11/19 25 11/11/2024 TSH RFX ON ABNOR MAL TO FREE T4 TSH 2.750 uIU/m L 0.450- 4.500 Not Available [facility] ([facility]) [address] [facility], [place], [address], 11/11/2024 03:36:14 08/21/19 25 US, echoc ardio gram, trans thora cic, compl ete, w/ color flow No observ ation record ed. [place] [facility] ([facility]) Scheduling [address] [place], [address], 08/20/2024 19:49:37 09/03/19 25 XR, chest , 2 view No observ ation record ed. [email or web address] [facility] ([facility]) Scheduling [address] [place], [address], 09/02/2024 12:20:55 10/08/19 25 10/06/2024 MAMMO , scree trenton, digit al, bilat eral No observ ation record ed. [facility] (Radiology) [address] [place], [address], 10/31/2024 14:32:18 10/08/19 25 10/06/2024 MAMMO , scree [place]rent[place], digit al, bilat eral No observ ation record ed. [facility] [address], [place], [address], 10/22/2024 14:14:46 11/25/19 25 11/24/2024 MAMMO , diagn ostic , digit al, unila teral No observ ation record ed. [facility] (Radiology) [address] [place], [address], 12/02/2024 22:21:59 Result Notes None recorded. Problems Name Problem SNOMED Code Status Onset Date Resolution Date Notes Provider Name and Address Organization Details Recorded Time Acute bronchitis 22800726 Completed 02/17/2020 Juliet Perez APN, FNP-C Attn: Valerie konwles,[address] [facility], [place], [place], [address] [place] [address] 2, [facility] 0 09:52:21 Candidiasis of vagina 04377210 Completed 02/17/2020 Juliet Perez APN, FNP-C Attn: Valerie knowles,[address] [facility], [place], [place], [address] [place] [address] 2, [facility] 0 09:52:32 Specimen unsatisfact ory for evaluation 400884639 Completed 02/17/2020 Juliet Perez APN, FNP-C Attn: Valerie knowles,[address] [facility], [place], [place], [address] [place] [address] 2, [facility] 0 09:52:25 Vaginal discharge 368058781 Completed 02/17/2020 Juleit Perez APN, FNP-C Attn: Valerie knowles,[address] [facility], [place], [place], [address] [place] [address] 2, [facility] 0 09:52:29 Elevated blood-press ure reading without diagnosis of hypertensio n 103408550 Completed 11/08/2021 Juliet Perez APN, FNP-C Attn: Valerie knowles,[address] [facility], [place], [place], [address] [place] [address] 2, [facility] 2 09:52:39 Urinary incontinenc e 187865684 Active 2019 Juliet Perez APN [employer] Attn: Valerie knowles,[address] [facility], [place], [place], [address] [place] [address] 2, [facility] 0 10:25:02 Mood disorder 48917228 Active 2019 Juliet Perez APN [employer] Attn: Valerie knowles,[address] [facility], [place], [place], [address] [place] [address] 2, [facility] 0 10:25:04 Vitamin D deficiency 70082645 Active 2019 Juliet Perez APN, [employer] Attn: Heidiin g,[address] [facility], [place], [place], [address] [place] [address] 2, [facility] 0 10:39:26 Altered bowel function 66472675 Active 2019 Juliet Perez APN, [employer] Attn: Heidiin g,[address] [facility], [place], [place], [address] [place] [address] 2, [facility] - [facility] 0 10:39:27 Tobacco user 363482381 Active 2019 Juliet Perez APN [employer] Attn: Heidiin g,[address] [facility], [place], [place], [address] [place] [address] 2, [facility] - [facility] 0 10:39:41 Obesity 986446063 Active 2020 Juliet Perez APN, FNP-C Attn: Valerie g,[address] [facility], [place], [place], [address] [place] [address] 2, [facility] 1 11:06:06 Essential hypertensio n 79030369 Active 2020 Juliet Perez APN, FNP-C Attn: Heidiin g,[address] [facility], [place], [place], [address] [place] [address] 2, [facility] - [facility] 1 17:41:14 Hyperglycem ia 84510750 Active 2022 Juliet Perez APN, [employer]C Attn: Heidiin g,[address] [facility], [place], [place], [address] [place] [address] 2, [facility] - [facility] 3 11:51:12 Disorder of vitamin B12 715321865 Active 2022 Juliet Perez APN [employer] Attn: Heidiin g,[address] [facility], [place], [place], [address] [place] [address] 2, [facility] - [facility] 3 10:09:17 Fatigue 46206297 Active 2022 Juliet Perez APN [employer] Attn: Heidiin g,[address] [facility], [place], [address], [facility] - [facility] 3 10:09:18 Hyperlipide jeremías 34810767 Active 2022 Juliet Perez APN, [employer] Attn: Valerie knowles,[address] [facility], [place], [address], [facility] - [facility] 3 10:09:33 Neck pain 20358287 Active 2023 Juliet Perez APN, [employer] Attn: Valerie knowles,[address] [facility], [place], [address], [facility] - [facility] 4 09:47:45 Spasm of back muscles 813642807 Active 2023 Juliet Perez APN, [employer] Attn: Valerie knowles,[address] [facility], [place], [address], [facility] 4 09:47:46 Smoker 71981931 Active 2024 Santana Moran MD Attn: Valerie knowles,[address] [facility], [place], [address], [facility] - [facility] 5 09:52:43 Problem Notes None recorded. Procedures Surgical History Date Name Laterality Status Provider Name and Address Organization Details Recorded Time 6 Date of Last Pap Smear completed Ashley Patino MA [facility] 09/02/2015 10:27:00 Caesarean Section completed Ashley Patino MA [facility] 09/02/2015 10:27:00 Imaging Results None recorded. Procedure Notes None recorded. Medical Equipment None Reported. Allergies Allergen ID Allergen Name Allergen Category Reaction Reaction Severity Criticality Documentation Date Start Date Code Code System Note Provider Name and Address Organization Details Recorded Time 56291 Substance with sulfonami de structure and antibacte rial mechanism of action (substanc e) medicatio n vomiting Not available Not available 04/30/2014 01329 8001 SNOMED flu sx Jalyn Menendez RN [facility], [facility] 5 17:50:56 Medications Name Sig Start Date Stop Date Status Note LastModified by Organization Details LastModified Time xolair kyle 150mgxola ir active Not Available Not Available Not Available ibuprofen tab 800mgibup rofen active Not Available Not Available Not Available clindamyc in cap 150mgclin damycin hcl active Not Available Not Available Not Available hydroco/a pap tab 5-325mghy drocodone /acetamin ophen active Not Available Not Available Not Available cyclobenz aprine 10 mg tablet Take 1 tablet 3 times a day by oral route. 05/13 completed Not Available Not Available Not Available amoxicill in 500 mg capsule TAKE 1 CAPSULE BY MOUTH THREE TIMES DAILY UNTIL GONE 05/29 completed Not Available Not Available Not Available atorvasta tin 40 mg tablet TAKE 1 TABLET BY MOUTH EVERY DAY 07/15 completed muscle aches Not Available Not Available Not Available buspirone 5 mg tablet TAKE 1 TABLET BY MOUTH TWICE DAILY 08/05 completed Not Available Not Available Not Available venlafaxi ne ER 37.5 mg capsule,e xtended release 24 hr Take 1 capsule every day by oral route. 03/15 completed increasi ng dose Not Available Not Available Not Available venlafaxi ne ER 75 mg capsule,e xtended release 24 hr TAKE 1 CAPSULE BY MOUTH EVERY DAY active Not Available Not Available No t Available atorvasta tin 20 mg tablet TAKE 1 TABLET BY MOUTH EVERY DAY 09/16 completed stopped on sunday Not Available Not Available Not Available azithromy chava 250 mg tablet TAKE 2 TABLETS BY MOUTH FOR 1 DAY THEN TAKE 1 TABLET BY MOUTH DAILY FOR 4 DAYS 09/16 completed Not Available Not Available Not Available ibuprofen 800 mg tablet TAKE 1 TABLET BY MOUTH THREE TIMES DAILY NEEDED active Not Available Not Available No t Available fluconazo le 150 mg tablet Take 1 tablet as needed by oral route as needed for 1 day. 02/16 completed Not Available Not Available Not Available hydrocodo ne 5 mg-acetam inophen 325 mg tablet TAKE 1 TO 2 TABLETS BY MOUTH EVERY 6 HOURS NEEDED FOR PAIN 05/29 completed Not Available Not Available Not Available lisinopri l 20 mg tablet TAKE 1 TABLET BY MOUTH EVERY DAY active Not Available Not Available No t Available prednison e 20 mg tablet TAKE 1 TABLET BY MOUTH TWICE DAILY FOR 5 DAYS 07/24 completed Not Available Not Available Not Available tramadol 50 mg tablet TAKE 1 TABLET BY MOUTH EVERY 6 HOURS FOR 7 DAYS active Not Available Not Available No t Available amoxicill in 500 mg tablet Take 1 tablet every 8 hours by oral route for 7 days. 05/13 completed Not Available Not Available Not Available cephalexi n 500 mg capsule Take 1 capsule every 12 hours by oral route as directed for 10 days. 02/16 completed Not Available Not Available Not Available lisinopri l 10 mg tablet TAKE 1 TABLET BY MOUTH EVERY DAY 03/13 completed Not Available Not Available Not Available diclofena c sodium 50 mg tablet,de layed release TAKE 1 TABLET BY MOUTH TWICE DAILY NEEDED 05/13 completed Not Available Not Available Not Available methylpre dnisolone 4 mg tablets in a dose pack FOLLOW PACKAGE DIRECTIO NS 09/16 completed Not Available Not Available Not Available albuterol sulfate HFA 90 mcg/actua tion aerosol inhaler Inhale 2 puffs 3 times a day by inhalati on route as needed. 07/24 completed Not Available Not Available Not Available loratadin e 10 mg tablet TAKE 1 TABLET BY MOUTH EVERY DAY NEEDED active Not Available Not Available No t Available cyclobenz aprine 5 mg tablet TAKE 1 TABLET BY MOUTH THREE TIMES DAILY FOR UP TO 5 DAYS NEEDED FOR MUSCLE SPASMS 08/05 completed Not Available Not Available Not Available fenofibra te 160 mg tablet TAKE 1 TABLET BY MOUTH EVERY DAY active Not Available Not Available No t Available Vitamin D3 5000 IU daily active Not Available Not Available No t Available multivita min active Not Available Not Available Not Available hydrochlo rothiazid e 12.5 mg tablet Take 1 tablet every day by oral route. 08/15 completed stopped taking due to weight gain Not Available Not Available Not Available fenofibra te 54 mg tablet TAKE 1 TABLET BY MOUTH EVERY DAY 01/14 completed Not Available Not Available Not Available Vitals Date Recorded Systolic And Diastolic Provider Name and Address Organization Details Last Updated DateTime 05/13/2024 138/78 mm[Hg] Juliet Perez APN, RISHABHC Attn: Accounting,[address] [place], [address], [place] [facility] 05/13/2024 10:03:06 Date Recorded Body height Body mass index (BMI) Body weight Oxygen saturation Oxygen saturation in Arterial blood by Pulse oximetry Respiratory rate Body temperature Heart rate Systolic And Diastolic Provider Name and Address Organization Details Last Updated DateTime 5 154.94 cm 34.8 kg/m2 11221 g 98 % 98 % 16 /min 97.5 [degF] 80 /min 152/94 mm[Hg] Cheli Doherty Sue [facility] 5 09:43:43 Date Recorded Body height Body mass index (BMI) Body weight Oxygen saturation Oxygen saturation in Arterial blood by Pulse oximetry Heart rate Body temperature Systolic And Diastolic Provider Name and Address Organization Details Last Updated DateTime 5 154.94 cm 34.4 kg/m2 87728.5 1 g 97 % 97 % 112 /min 97.5 [degF] 132/84 mm[Hg] Stephie Dudley MA [facility] 5 15:13:59 Date Recorded Body height Body mass index (BMI) Body weight Heart rate Oxygen saturation Oxygen saturation in Arterial blood by Pulse oximetry Systolic And Diastolic Provider Name and Address Organization Details Last Updated DateTime 5 154.94 cm 34.2 kg/m2 28870.2 2 g 105 /min 98 % 98 % 134/86 mm[Hg] Alba Ta RN [facility] 5 10:03:20 Date Recorded Body height Body mass index (BMI) Body weight Oxygen saturation Oxygen saturation in Arterial blood by Pulse oximetry Body temperature Respiratory rate Heart rate Systolic And Diastolic Provider Name and Address Organization Details Last Updated DateTime 5 154.94 cm 34.4 kg/m2 71340.8 1 g 97 % 97 % 97.8 [degF] 16 /min 92 /min 140/94 mm[Hg] Cheli Doherty Sue [facility] 5 08:36:50 Date Recorded Body height Body mass index (BMI) Body weight Heart rate Respiratory rate Oxygen saturation Oxygen saturation in Arterial blood by Pulse oximetry Systolic And Diastolic Provider Name and Address Organization Details Last Updated DateTime 5 154.94 cm 33.8 kg/m2 80121.0 3 g 92 /min 18 /min 99 % 99 % 124/80 mm[Hg] Eliza Renae LPN [facility] 5 10:04:06 Social History Question Answer Notes LastModified by Organizat ion Details LastModified Time Tobacco Smoking Status Current Every Day Smoker HARDIK Roblero, [facility] 04/30/2014 11:09:42 Do You Have An Advance Directive? No Information n ot available 02/17/2020 Are You Blind Or Do You Have Difficulty Seeing? No [email or web address] Information n ot available 07/26/2020 What Is Your Level Of Caffeine Consumption? Moderate Coffee Information not available 05/13/2024 How Much Tobacco Do You Chew? None Information not available 02/17/2020 In The 14 Days Before Symptom Onset, Have You Had Close Contact With A Laboratory-confirm ed COVID-19 While That Case Was Ill? No Information n ot available 02/17/2020 In The 14 Days Before Symptom Onset, Have You Had Close Contact With A Person Who Is Under Investigation For COVID-19 While That Person Was Ill? No Information not available 02/17/2020 Have You Been To An Area Known To Be High Risk For COVID-19? No Information not available 02/17/2020 Are You Deaf Or Do You Have Serious Difficulty Hearing? No [email or web address] Information not available 07/26/2020 What Type Of Diet Are You Following? REGULAR [email or web address] Information n ot available 03/14/2021 Which Illicit Or Recreational Drugs Have You Used? Declined Information not available 02/17/2020 Education 2 Year College Information not available 02/17/2020 Are There Any Guns Present In Your Home? No Information not available 02/17/2020 Hard Of Hearing Or Deaf In One Or Both Ears? No Information not available 02/17/2020 Legally Blind In One Or Both Eyes? No Information no t available 02/17/2020 Do You Have A High School Diploma Or Higher Education? Yes [email or web address] Information no t available 05/17/2020 Do You Sometimes Have To Miss Your Medical Appointments Due To Difficult Getting Transportation? No [email or web address] Information not available 05/17/2020 Do You Feel Unfairly Treated Due To Things Such As Race, Age, Gender, Disability Or Some Other Reason? No [email or web address] Information not available 05/17/2020 Do You Feel Physically And Emotionally Safe While Living At Home? Yes [email or web address] Information not available 05/17/2020 Do You Feel Physically And Emotionally Safe In Your Neighborhood Or Other Public Places? Yes [email or web address] Information not available 05/17/2020 Marital Status Single Informatio n not available 02/17/2020 What Was The Date Of Your Most Recent Tobacco Screening? 09/16/2024 Information not available 09/16/2024 How Many Children Do You Have? 1 Information not available 12/01/2020 Performs Monthly Self-breast Exam? No Information no t available 02/17/2020 Do You Use Protection During Sex? No Information not available 12/01/2020 What Is Your Relationship Status? Single [email or web address] Information not available 07/26/2020 Do You Use Your Seat Belt Or Car Seat Routinely? Yes Information not available 01/15/2024 Seat Belts Used Routinely No Information not available 02/17/2020 Are You Sexually Active? Yes Information not available 12/01/2020 Smoke Alarm In Home Yes Information not available 02/17/2020 Do You Have Smoke And Carbon Monoxide Detectors In Your Home? Yes [email or web address] Information not available 07/26/2020 At What Age Did You Start Smoking Tobacco? 14 [email or web address] Information not available 01/28/2016 Are You Passively Exposed To Smoke? Yes [email or web address] Information no t available 07/26/2020 How Much Tobacco Do You Smoke? 0.5 PPD [email or web address] Information not available 04/30/2014 General Stress Level Low Information not available 05/17/2020 Do You Use Sunscreen Routinely? No Information not available 12/01/2020 Has Tobacco Cessation Counseling Been Provided? Yes Information not available 11/08/2021 On What Date Was Tobacco Cessation Counseling Provided? 09/16/2024 Information not available 09/16/2024 How Many Years Have You Smoked Tobacco? 28 05/13/24 Information not available 05/13/2024 Sex: Female Functional Status Question Answer Note LastModified by Organizat ion Details LastModified Time Do you use any illicit or recreational drugs? No [email or web address] Information not available 07/26/2020 Do you or have you ever used any other forms of tobacco or nicotine? No [email or web address] Information not available 07/26/2020 What is your level of alcohol consumption? Occasional [email or web address] Information not available 03/15/2020 Do you or have you ever used smokeless tobacco? Never used smokeless tobacco Information not available 02/17/2020 Are you currently employed? Yes [email or web address] Information not available 07/26/2020 Are you able to care for yourself independently? Yes [email or web address] Information not available 07/26/2020 What is your occupation? [employer] [email or web address] Information not available 03/14/2021 Do you or have you ever used e-cigarettes or vape? Never used electronic cigarettes Information not available 02/17/2020 What is your exercise level? Occasional job [email or web address] Information not available 04/03/2024 Mental Status Question Answer Note LastModified by Organization D etails LastModified Time Do you feel stressed (tense, restless, nervous, or anxious, or unable to sleep at night)? [id number] [email or web address] Information not available 07/26/2020 Family History Relationship Description Onset Age of this Age Resolved Age Notes LastModified by Organization Details LastModified Time Mother Carcinoma of colon 53 [email or web address] Not available 2019 09:34:21 Mother History of thyroid disorder [email or web address] Not available 2024 09:58:48 Father Cerebrovascu lar accident [email or web address] Not available 01/2020 09:34:27 Father Diabetes mellitus [email or web address] Not available 2019 09:34:32 Father Hypertensive disorder [email or web address] Not available 2019 09:34:39 Father Hemochromato sis [email or web address] Not available 08/2022 09:17:19 Paternal Grandmother Disorder of thyroid gland Not available 11/08 09:46:39 Paternal Grandmother Hemochromato sis [email or web address] Not available 08/2022 09:17:19 Paternal Grandmother History of thyroid disorder [email or web address] Not available 2024 09:58:48 Sister History of thyroid disorder [email or web address] Not available 2024 09:58:48 Maternal Aunt History of thyroid disorder [email or web address] Not available 2024 09:58:48 Medical History Condition Response Coronary Artery Disease N Other Y High Blood Pressure N Atrial Fibrillation N Breast Cancer N Lung Disease N Depression N COPD N Blood Clots N Breast Problem N Anesthesia Complications N Headaches/Migraines N Anxiety Disorder Y Muscle, Joint, or Bone Problems N Infertility N Polyps N Acid Reflux (GERD) N Cancer N Stroke N Endometriosis N High Cholesterol N Liver Disease N Headaches N Thyroid Problems N Kidney or Bladder Problems N GI Problems N Acne N Eating Disorder N Skin Problems Y Anemia N Heart Attack (DE) N Diabetes N Ovarian Cancer N Blood Transfusions N Seizures/Epilepsy N Abuse/Domestic Violence N Asthma N Allergies N Hepatitis N Heart Disease N Pre-Eclampsia N Heart Failure N Osteoporosis N Gynecological History Statement/Question Response Abnormal Pap N Date of LMP 08/09/2024 STIs/STDs N HPV Vaccine N Age at Menarche 12 Current Control Method None Age at First Child 27 Sexually Active? Y Menses Monthly Y Date of Last Pap Smear 06/14/2015 Sexual Problems? N LMP Definite Obstetrics History GPAL:G 3 P 1 0 2 1 Type Value Full Term 1 Induced 2 Living 1 Total 3 Immunizations Vaccine Type Date Status Note Provider Name and Address Organization Details Recorded Time Tdap 01/04/20 24 completed Juliet Perez APN, FNP-Aleks Attn: Accounting,[address] [facility], [place], [address], [facility] 05/13/2024 09:52:19 Influenza, split virus, quadrivalent, preservative 02/17/20 20 cancelled patient objection Juliet Perez APN, FNP-C Attn: Accounting,[address] [facility], [place], [address], [facility] 02/17/2020 10:33:21 Past Encounters Encounter ID Performer Location Encounter Start Date Encounter Closed Date Diagnosis/Indication Diagnosis SNOMED-CT Code Diagnosis ICD10 Code Diagnosis IMO Codes Diagnosis Note [id number] MD Juan M Fish (Adult Med) [address] [place] [address] 04/30/2014 10:33:23 04/30/2014 12:49:52 Adult health examination [id number] Elevated blood-pressure reading without diagnosis of hypertension 974507331 [id number] MD Juan M Fish (Adult Med) [address] [place] [address] 02/10/2015 11:32:49 02/10/2015 14:43:12 Acute bronchitis 03883394 J20.8 Elevated blood-pressure reading without diagnosis of hypertension 835112539 R03.0 pt is not taking HCTZ pt to quit smoking and follow low salt diet needs f/u [id number] Clover Hogan [facility] ([place] [address]) [address] [facility] [place] [address] 09/02/2015 10:14:14 09/02/2015 10:49:46 Venereal disease screening 363421750 Z11.3 Screening for malignant neoplasm of cervix 193728991 Z12.4 Furuncle 636165773 L02.9 2 [id number] [facility] ([place] [address]) [address] [facility] [place] [address] 09/14/2015 09:09:18 09/14/2015 10:57:43 Specimen unsatisfactory for evaluation 315410731 R87.625 Vaginal discharge 963290 006 N89.8 [id number] [facility] Charles [facility] ([place] [address]) [address] [facility] [place] [address] 01/28/2016 14:17:05 01/28/2016 16:07:27 Vaginal discharge 833630606 N89.8 [id number] MD Juan M Roman (Adult Med) [address] [place] [address] 02/17/2020 08:22:14 02/18/2020 05:25:39 Influenza vaccination declined 505664378 Z28.21 Adult heal th examination 749708103 Z00.01 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 Tobacco user 818562841 Z 72.0 Smoking cessation encouraged . Mood disorder 40775769 F 40 anxiety with panic attacks;dw p starting venlafaxin eR/B/A/SE of antidepres dagoberto medication discussed such as gastrointe stinal s/e, mood irritabili ty, Suicidal ideation, risk of mark. F/U in 3-4 weeks. Call with concerns and questions. Compliance with medication s and follow up care strongly recommende d. Call 911 or ER for crises. Urinary incontinence 165 479786 R32 increasing issues since c section, losing control more and cannot fully empty, dwp starting with lab, may also benefit from pelvic floor pt or urology referral Vitamin D deficiency 347 86176 E55.9 low in past, check lab Altered jamie wel function 05839407 R19.4 increased bm, worse with anxiety, certain foods also make it worse, [id number] MD Juan M Roman (Adult Med) [address] [place] [address] 03/15/2020 08:23:40 03/16/2020 10:00:44 Mood disorder 42972896 F40 anxiety with panic attacks;dw p starting venlafaxin eR/B/A/SE of antidepres dagoberto medication discussed such as gastrointe stinal s/e, mood irritabili ty, Suicidal ideation, risk of mark.impr jaqueline some, no side effects; will increase dose to 75 mg, dwp f/u sooner if needed [id number] MD Juan M Roman (Adult Med) [address] [place] [address] 05/17/2020 08:21:29 05/18/2020 13:16:50 Mood disorder 90984418 F39 anxiety with panic attacks;co nt venlafaxin e 75 mgR/B/A/SE of antidepres dagoberto medication discussed such as gastrointe stinal s/e, mood irritabili ty, Suicidal ideation, risk of mark.impr jaqueline some, no side effects; [id number] MD Juan M Roman (Adult Med) [address] [place] [address] 07/26/2020 10:28:17 07/27/2020 08:55:48 Mood disorder 90373151 F39 anxiety with panic attacks; cont venlafaxin e 75 mg R/B/A/SE of antidepres dagoberto medication discussed such as gastrointe stinal s/e, mood irritabili ty, Suicidal ideation, risk of mark. improved some, no side effects. Elevated blood-pressure reading without diagnosis of hypertension 019001226 R03.0 BP in pre-hypert ensive range, dwp risk, reducing salt and increasing exercise Obesity 874914680 E66.9 advised low fat, low cholestero l diet, regular exercise and weight reduction. Tobacco user 044811920 Z 72.0 Smoking cessation encouraged . [id number] MD Juan M Roman (Adult Med) [address] [place] [address] 12/01/2020 11:48:41 12/07/2020 12:33:29 Mood disorder 13732512 F39 anxiety with panic attacks; cont venlafaxin e 75 mg R/B/A/SE of antidepres dagoberto medication discussed such as gastrointe stinal s/e, mood irritabili ty, Suicidal ideation, risk of mark. improved some, no side effects. Elevated blood-pressure reading without diagnosis of hypertension 514108552 R03.0 BP in pre-hypert ensive range, dwp risk, reducing salt and increasing exercise Obesity 596574154 E66.9 advised low fat, low cholestero l diet, regular exercise and weight reduction. Tobacco user 679292371 Z 72.0 Smoking cessation encouraged . 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 Vitamin D deficiency 347 51452 E55.9 low in past, check lab [id number] MD Juan M Roman (Adult Med) [address] [place] [address] 03/14/2021 11:40:55 03/15/2021 12:12:05 Mood disorder 78054901 F39 anxiety with panic attacks; cont venlafaxin e 75 mg R/B/A/SE of antidepres dagoberto medication discussed such as gastrointe stinal s/e, mood irritabili ty, Suicidal ideation, risk of mark. improved some, no side effects. Obesity 917627275 E66.9 advised low fat, low cholestero l diet, regular exercise and weight reduction. Tobacco user 136364532 Z 72.0 Smoking cessation encouraged . Essential hypertension 97788373 I10 BP in hypertensi ve range, dwp risk, reducing salt and increasing exercise, will add diuretic [id number] MD Juan M Roman (Adult Med) [address] [place] [address] 08/15/2021 09:17:15 08/16/2021 08:46:16 Obesity 515471164 E66.9 advised low fat, low cholestero l diet, regular exercise and weight reduction. Mood disorder 58782999 F 40 anxiety with panic attacks; improved cont venlafaxin e 75 mg R/B/A/SE of antidepres dagoberto medication discussed such as gastrointe stinal s/e, mood irritabili ty, Suicidal ideation, risk of mark. improved some, no side effects. Essential hypertension 07814339 I10 BP in hypertensi ve range, dwp risk, reducing salt and increasing exercise, diuretic made her gain weight; will start lisinopril , dwp r/b/se Vitamin D deficiency 347 83009 E55.9 low in past, check lab [id number] MD Juan M Roman (Adult Med) [address] [place] [address] 11/08/2021 09:41:27 11/09/2021 08:22:09 Essential hypertension 83468215 I10 BP in hypertensi ve range, dwp risk, reducing salt and increasing exercise, diuretic made her gain weight;sta ble now, cont lisinopril , dwp r/b/se Obesity 586403833 E66.9 advised low fat, low cholestero l diet, regular exercise and weight reduction. Tobacco user 739952658 Z 72.0 Smoking cessation encouraged . Fatigue 84305975 R53.83 check labs Mood disorder 10956284 F 40 anxiety with panic attacks; improved cont venlafaxin e 75 mg R/B/A/SE of antidepres dagoberto medication discussed such as gastrointe stinal s/e, mood irritabili ty, Suicidal ideation, risk of mark. improved some, no side effects. Vitamin D deficiency 347 26791 E55.9 low in past, check lab Family his tory of colorectal cancer 7404261314 104 Z80.0 mom at 53 from colon cancer, stage 4 [id number] MD Juan M Roman (Adult Med) [address] [place] [address] 05/29/2022 11:31:46 05/31/2022 14:07:11 Hypertriglyceridemia 847201008 E78.1 will check labcont fenofibrat e Essential hypertension 11665884 I10 BP in hypertensi ve range- did not take meds; dwp risk, reducing salt and increasing exercise, diuretic made her gain weight;con t lisinopril , dwp r/b/se Obesity 875163541 E66.9 advised low fat, low cholestero l diet, regular exercise and weight reduction. Tobacco user 328397966 Z 72.0 Smoking cessation encouraged . Mood disorder 60139374 F 40 anxiety with panic attacks; improved cont venlafaxin e 75 mg R/B/A/SE of antidepres dagoberto medication discussed such as gastrointe stinal s/e, mood irritabili ty, Suicidal ideation, risk of mark. improved some, no side effects. Vitamin D deficiency 347 30579 E55.9 low in past, check lab Hyperglycemia 05549932 R 73.9 check a1c [id number] MD Juan M Roman (Adult Med) [address] [place] [address] 2022 09:22:44 12/18/2022 14:32:00 Disorder of vitamin B12 797219040 E53.8 check lab, taking otc meds Fatigue 32490036 R53.83 check labs Essential hypertension 37576630 I10 BP in hypertensi ve range-took meds, but still elevated, will increase dose dwp risk, reducing salt and increasing exercise, diuretic made her gain weight;con t lisinopril , dwp r/b/se Obesity 639886616 E66.9 advised low fat, low cholestero l diet, regular exercise and weight reduction. Vitamin D deficiency 347 01350 E55.9 low in past, check lab Hyperglycemia 86234794 R 73.9 check a1c Tobacco user 577812596 Z 72.0 Smoking cessation encouraged . Hyperlipidemia 84455668 E78.5 cont with fenofibrat e 54 mg [id number] MD Juan M Roman (Adult Med) [address] [place] [address] 03/13/2023 09:12:04 03/14/2023 10:17:17 Hyperlipidemia 67781274 E78.5 stop fenofibrat e 54 mg; start statin Essential hypertension 28659441 I10 BP in hypertensi ve range-took meds, but still elevated, will increase dose dwp risk, reducing salt and increasing exercise, diuretic made her gain weight;con t lisinopril , dwp r/b/se Obesity 286977953 E66.9 advised low fat, low cholestero l diet, regular exercise and weight reduction. Tobacco user 621194303 Z 72.0 Smoking cessation encouraged . Mood disorder 37621361 F 40 anxiety with panic attacks; improved cont venlafaxin e 75 mg R/B/A/SE of antidepres dagoberto medication discussed such as gastrointe stinal s/e, mood irritabili ty, Suicidal ideation, risk of mark. improved some, no side effects. [id number] MD Juan M Roman (Adult Med) [address] [place] [address] 07/16/2023 08:58:28 07/26/2023 21:30:10 Hyperlipidemia 95647177 E78.5 stop fenofibrat e 54 mg; start statin-pt stopped due to muscle pain, Essential hypertension 23157709 I10 BP in hypertensi ve range-took meds, but still elevated, will increase dose dwp risk, reducing salt and increasing exercise, diuretic made her gain weight;con t lisinopril , dwp r/b/se Obesity 752381976 E66.9 advised low fat, low cholestero l diet, regular exercise and weight reduction. Tobacco user 081430665 Z 72.0 Smoking cessation encouraged . Mood disorder 79666382 F 40 anxiety with panic attacks; improved cont venlafaxin e 75 mg R/B/A/SE of antidepres dagoberto medication discussed such as gastrointe stinal s/e, mood irritabili ty, Suicidal ideation, risk of mark. improved some, no side effects. Spasm of back muscles 20 9095605 M62.830 prn muscle relaxer, is still seeing chiro Pain of le ft shoulder joint [id number] 5233360 M25.512 sees chiro, will call if she decides to get XR [id number] MD Juan M DUONG (MANAGER AUDIO) [address] [place] [address] 08/03/2023 14:29:23 08/08/2023 19:50:03 Ingrowing nail of toe of left foot 6180809188 9621926 L60.0 - Okay to continue Epsom salt baths- Recommend NSAIDs, ice as needed- Consider referral to podiatry for partial vs full toenail removal if persistent ly bothersome [id number] Komal Escamilla-MD Juan M Betancur (Adult Med) [address] [place] [address] 01/15/2024 09:00:19 01/18/2024 16:40:33 Hyperlipidemia 50934098 E78.5 statin-pt stopped due to muscle pain,diet changes discussed Essential hypertension 92796290 I10 BP in hypertensi ve range-did not take med yet today dwp risk, reducing salt and increasing exercise, diuretic made her gain weight;con t lisinopril , dwp r/b/se Tobacco user 765559636 Z 72.0 Smoking cessation encouraged . Mood disorder 49481261 F 40 anxiety with panic attacks; improved cont venlafaxin e 75 mg R/B/A/SE of antidepres dagoberto medication discussed such as gastrointe stinal s/e, mood irritabili ty, Suicidal ideation, risk of mark. improved some, no side effects. Obesity 858612715 E66.9 advised low fat, low cholestero l diet, regular exercise and weight reduction. Spasm of back muscles 20 6671486 M62.830 prn muscle relaxer, is still seeing chiro Neck pain 21353232 M54.2 prior shoulder xray suggested OA, will get dedicated images-rx diclofenac -dwp possible PT as well pending xr [id number] MD Juan M Fish (Adult Med) [address] [place] [address] 04/03/2024 11:50:21 04/04/2024 11:23:59 Acute bronchitis 04285627 J20.8 with sinusitis- keep good hydrations top smokingpt to go to ER if sob or problem worsen Essential hypertension 18524699 I10 - pt is on lisinopril pt to f/u with pcp [id number] MD Juan M Roman (Adult Med) [address] [place] [address] 05/13/2024 09:10:17 05/15/2024 12:03:23 Essential hypertension 51203927 I10 dwp risk, reducing salt and increasing exercise, diuretic made her gain weight;con t lisinopril , dwp r/b/se Obesity 150817592 E66.9 advised low fat, low cholestero l diet, regular exercise and weight reduction. Tobacco user 327246079 Z 72.0 Smoking cessation encouraged . Mood disorder 60118314 F 40 anxiety with panic attacks; improved cont venlafaxin e 75 mg R/B/A/SE of antidepres dagoberto medication discussed such as gastrointe stinal s/e, mood irritabili ty, Suicidal ideation, risk of mark. improved some, no side effects.wi ll start buspar Spasm of back muscles 20 9118084 M62.830 prn muscle relaxer, is still seeing chiropt prefers ibu over Hyperlipidemia 41571107 E78.5 statin-pt stopped due to muscle pain,diet changes discussed [id number] MD Juan M Roman (Adult Med) [address] [place] [address] 07/24/2024 15:00:44 07/31/2024 09:28:59 Electrocardiogram abnormal 830292396 R94.31 [id number] abnormal ekg in ER, will refer to cardio Essential hypertension 80863188 I10 dwp risk, reducing salt and increasing exercise, diuretic made her gain weight;con t lisinopril , dwp r/b/se Obesity 845785340 E66.9 advised low fat, low cholestero l diet, regular exercise and weight reduction. Neck pain 03445210 M54.2 prior shoulder xray suggested OA, will get dedicated images-rx diclofenac , pt prefers ibu-dwp possible MRI pending PT-tramado l for acute pain q hs only [id number] Santana Moran MD [facility] [place] [address] [place] [address] 08/05/2024 09:44:12 08/08/2024 08:50:14 Smoker 53907298 F17.200 Nicotine cessation for cardiovasc ular risk reduction discussed. Declines need for pharmaceut ical interventi on. Obese class I 3733136136 18610 E66.811 8785284094 Diet/exerc ise encouraged for weight management . Precordial pain 09252659 R07.2 R94.31 Z86.16 R06.09 84359 In light of somewhat atypical chest pain, abnormal EKG suggestive of age-indete rminate anterior infarct, history of COVID-19 with NYHA class 2 dyspnea and family history of hemochroma tosis, obtain echocardio gram to rule out structural /valvular heart disease. Red flag symptoms in the interim discussed. ASCVD risk score currently intermedia te and we will plan follow-up on a close interval basis to discuss additional evaluation for myocardial ischemia (cardiac catheteriz ation versus provocativ e testing) based on findings of echocardio gram and clinical course. Mixed hyperlipidemia 267 891216 E78.2 41586 Last LDL 185. After shared decision-m aking, initiate atorvastat in 20 mg daily. Encouraged limiting alcohol. Check follow-up CMP and lipid panel. Essential hypertension 95405073 I10 10412 Maintained on lisinopril 20 mg daily. Encouraged low-sodium diet and ambulatory blood pressure monitoring . We will plan close interval follow-up in 6 weeks with the results of above-ment ioned testing. Red flag symptoms to seek urgent medical attention in the interim reinforced . On behalf of the Cardiovasc ular Services at [facility] , we appreciate the opportunit y to participat e in the care of your patient. Please feel free to reach out to us for any questions regarding your patient's cardiac care. Santana Moran MD, [facility] Card[facility] Ph: [phone] MD Juan M Roman (Adult Med) [address] [place] [address] 08/12/2024 08:17:03 08/21/2024 08:54:33 Essential hypertension 79108451 I10 dwp risk, reducing salt and increasing exercise, diuretic made her gain weight;Pat ient now following with Cardiology Hyperlipidemia 44638684 E78.5 statin-pt stopped due to muscle pain,diet changes discussedN ow on Lipitor from Cardiology Tobacco user 627926364 Z 72.0 Smoking cessation encouraged . Vitamin D deficiency 347 88366 E55.9 low in past, check lab Hyperglycemia 73778670 R 73.9 check a1c Mood disorder 90900819 F 40 anxiety with panic attacks; improved cont venlafaxin e 75 mg R/B/A/SE of antidepres dagoberto medication discussed such as gastrointe stinal s/e, mood irritabili ty, Suicidal ideation, risk of mark. improved some, no side effects. Neck pain 15397216 M54.2 53670 prior shoulder xray suggested OA, will get dedicated images-rx diclofenac , pt prefers ibu-dwp possible MRI pending PT-william bailey for acute pain q hs only-has open referral for physical therapy at this time, nothing scheduled yet Acute uppe r respiratory infection 92312131 J06.9 398764 dwp to increase fluids, OTC cold med prn, rest, good handwashin g Posterior rhinorrhea 758 73698 J34.89 911317 start claritin qd prn,increa se fluidsLSCT A [id number] Santana Moran MD [facility] [place] [facility] [place] [address] [place] [address] 09/16/2024 09:52:37 10/06/2024 11:59:41 Hypertriglyceridemia 991325939 E78.1 297131 Fenofibrat e 160 mg daily. Check follow-up CMP and lipid panel. Side effect profile reviewed. Given patient's reported family history of thyroid abnormalit ies, obtain TSH with reflex to T4. Encouraged follow-up with PCP for long-term management of suspected thyroid disorder Obese class I 6635300153 89668 E66.811 5425661890 Precordial pain 24875325 R07.2 I10 24717 No significan t structural heart disease on echocardio gram. Somewhat atypical symptoms with interpreta ble EKG inability to exercise. Order treadmill stress test. Red flag symptoms in the interim again reviewed. Health Concerns Section Related Observation LastModified by Organization Detai ls LastModified Time None Recorded Concern Status LastModified by Organization Details LastModified Time None Recorded Advance Directives Directive N: Payers Insurance Date Sequence Insurance Name Policy Number Policy Tran Covered Member ID Tran Member ID Guarantor Name 11/19/2024 1 [facility] PRIOR TO 2024 (MEDICAID REPLACEMENT - HMO) [id number] Marixa Waynepaulina [id number] Marixa Retpaulina 08/05/2024 1 [employer] (MEDICAID HMO) Marixa Retzer [id number] Marixa Retzer 08/05/2024 1 [facility] (PPO) [id number] Marixa Retzer [id number] Marixa Steve Notes Date Note Type Note Provider Name and Address Organization Details Recorded Time 5 text/html HTN-taking med; no cp or sob Lipid- stopped taking med, has tried to avoid carbs and some sugars, eating salmon Mood- no SI or HI on venlafaxine feeling more tired, taking b12 otc pt still c/o left side neck pain- using IBU. Xr showed arthritis. wants additional imaging. muscle relaxer does not help.stopped taking diclofenac due to causing stomach pain and muscle relaxer gave her cotton mouth. states she has to take IBU daily now. Juliet Perez APN, POST SECONDARY PROFESSIONAL-C Attn: Accounting,[address] [facility], [place], [address], [facility] 05/14/2024 18:43:40 5 text/html Pt. was seen in [facility] ER on 07/16/24 after numbness, tingling, pain. ER doctor said she was fine. Got EKG results and they were abnormal. Left arm is always numb now. Tramadol helped w/ her pain. Prednisone also helped/she finally felt normal Would like MRI. Of neck Juliet Perez APN, POST SECONDARY PROFESSIONAL-C Attn: Accounting,[address] [facility], [place], [address], [facility] 07/30/2024 12:59:39 5 text/html ROS as noted in the HPI I had the pleasure of seeing this patient as a new consultation from Juliet Perez NP for recommendations regarding evaluation and management of abnormal EKG 43-year-old [facility] with abnormal EKG. Pain is described as starting at the neck with a radiating to the chest and back. Also reports burning in the center of her chest along with pain between her shoulder blades which is nonexertional and lasts for a few minutes. Reports NYHA class 2 dyspnea which attributes to smoking. Denies palpitations, presyncope or syncope. Previous history of COVID-19. Denies history of DVT/PE. Cardiac history/ risk factors:HypertensionMixed hyperlipidemiaNicotine dependenceImpaired glucose toleranceObesityHistory of COVID-19Father with hemochromatosis Cardiac diagnostics:Twelve lead EKG 07/16/2024, [facility]: Sinus rhythm with poor septal R-wave progression suggestive of age-indeterminate anterior infarct. Santana Moran MD Attn: Accounting,[address] [facility], [place], [address], [facility] 08/05/2024 10:37:43 5 text/html daughter recently has a URI- pt thinks she is getting sx now. C/o cough, irritated throat for 4 days Hypertension-now following with Cardiology compliant with lisinoprilHyperlipidemia-leal s been now placed back on lipitor by Cardiology, side effects- none yetSmoking- still smoking, about 1/2 a packMood-denies suicidal and homicidal ideation, denies self-harm, mood stable on venlafaxine 75 mgCA screenings-needs cervical Juliet Perez APN, [employer] Attn: Accounting,[address] [facility], [place], [address], [facility] 08/12/2024 18:31:27 5 text/html ROS as noted in the HPI 43-year-old presents for follow-up for chest pain. Continues to notice intermittent left-sided chest pain, substernal, sharp, occasionally brought on by exertion, short lived. Denies palpitations, presyncope or syncope. Labs with hypertriglyceridemia. Reports family history of thyroid abnormalities. Cardiac history/ risk factors:HypertensionMixed hyperlipidemiaNicotine dependenceImpaired glucose toleranceObesityHistory of COVID-19Father with hemochromatosis Cardiac diagnostics:Twelve lead EKG 07/16/2024, [facility]: Sinus rhythm with poor septal R-wave progression suggestive of age-indeterminate anterior infarct. Transthoracic echocardiogram 08/20/2024: LVEF 68%, normal RV size/function, no hemodynamically significant valvular abnormalities, no pericardial effusion Santana Moran MD Attn: Accounting,[address] [facility], [place], [address], [facility] 10/06/2024 09:35:50 OBGyn Episode Ob Episode Information Episode Created Date Number of Fetuses Patient Bloodtype Patient rh Status Prepregnancy Weight lbs Domestic Partner Domestic Partner Phone Father Name Cloth Tester Quality Status 02/17/20 20 1 CLOSED Fetus Data First Name Last Name Admitted to NICU Weight (g) Sex Living Outcome Pediatric Complications Fetus ID Race Codes Race Delivery Type F Full Term [id number] Otf Calculation Initial Otf Date Initial Exam Date Initial Exam Provider Initial Ultrasound Date Last Menstrual Period Date Ultra Sound Weeks Gestation 0 Eighteen To Twenty Week Otf Update Ultra Sound Date Fundal Height At Umbil Quickening Date Ultra Sound Latest Weeks Gestation Final Tof Confirmed By Final Otf Confirmed Date Final Otf Date Ultra Sound Latest Days Gestation 0 0 Menstrual History Last Menstrual Date Menses Monthly On Bcp Conception Prior Menses Frequency Hcg Plus Date Menarche Onset Age Delivery Information Delivery Date Delivery Type Labor Anesthesia Weeks Gestation Incision Type Labor Labor Length Hrs Delivered By Post Complications Tubal Sterilization Discharge Date Comments 8 Discharge Information Feeding Method Contraceptive Method Maternal HG B and HCT Levels
== END 2025-02-14 11:45 | disposition home or self-care (01) ==
PROVIDERS: Emergency Provider Nurse Practitioner Family; PCP Nurse Practitioner Family
DX: J20.8 Acute bronchitis due to other specified organisms (principal); I10 Essential (primary) hypertension; E78.00 Pure hypercholesterolemia, unspecified; F41.9 Anxiety disorder, unspecified
CPT/HCPCS: 99213; G0463